=== PATIENT | male | born 1980 | race Caucasian/White ===

== ENCOUNTER → 2020-07-19 12:38 | Outpatient (BNVA) | payer MEDICARE, SELFPAY | PROVIDERS: Family Provider Family Medicine; PCP Family Medicine; Visit Provider Psychiatry & Neurology Psychiatry | DX: F39 Unspecified mood [affective] disorder (principal) | CPT/HCPCS: 90792 ==

== ENCOUNTER → 2020-09-18 15:25 | Outpatient (BNVA) | payer MEDICARE, SELFPAY | PROVIDERS: Family Provider Family Medicine; PCP Family Medicine; Visit Provider Psychiatry & Neurology Psychiatry | DX: F39 Unspecified mood [affective] disorder (principal) | CPT/HCPCS: 99213 ==

== ENCOUNTER → 2020-10-17 08:51 | Outpatient (BNVA) | payer MEDICARE, MEDICAID, SELFPAY | PROVIDERS: Family Provider Family Medicine; PCP Family Medicine; Visit Provider Social Worker | DX: F39 Unspecified mood [affective] disorder (principal) | CPT/HCPCS: 90834 ==

== ENCOUNTER → 2020-10-30 14:37 | Outpatient (BNVA) | payer MEDICARE, SELFPAY | PROVIDERS: Family Provider Family Medicine; PCP Family Medicine; Visit Provider Psychiatry & Neurology Psychiatry | DX: F39 Unspecified mood [affective] disorder (principal); Z03.89 Encounter for observation for other suspected diseases and conditions ruled out; Z79.899 Other long term (current) drug therapy | CPT/HCPCS: 80053; 80061; 83036; 84443; 85025; 99214 ==

== ENCOUNTER → 2020-11-07 08:32 | Outpatient (BNVA) | payer MEDICARE, MEDICAID, SELFPAY | PROVIDERS: Family Provider Family Medicine; PCP Family Medicine; Visit Provider Social Worker | DX: F39 Unspecified mood [affective] disorder (principal) | CPT/HCPCS: 90834 ==

== ENCOUNTER → 2020-11-21 14:46 | Outpatient (BNVA) | payer MEDICARE, MEDICAID, SELFPAY | PROVIDERS: Family Provider Family Medicine; PCP Family Medicine; Visit Provider Social Worker | DX: F39 Unspecified mood [affective] disorder (principal); F43.12 Post-traumatic stress disorder, chronic; F25.0 Schizoaffective disorder, bipolar type | CPT/HCPCS: 90834; 90832 ==

== ENCOUNTER → 2020-12-05 12:48 | Outpatient (BNVA) | payer MEDICARE, MEDICAID, SELFPAY | PROVIDERS: Family Provider Family Medicine; PCP Family Medicine; Visit Provider Social Worker | DX: F39 Unspecified mood [affective] disorder (principal) | CPT/HCPCS: 90834 ==

== ENCOUNTER → 2020-12-19 13:49 | Outpatient (BNVA) | payer MEDICARE, MEDICAID, SELFPAY | PROVIDERS: Family Provider Family Medicine; PCP Family Medicine; Visit Provider Social Worker | DX: F39 Unspecified mood [affective] disorder (principal) | CPT/HCPCS: 90834 ==

== ENCOUNTER → 2020-12-25 14:24 | Outpatient (BNVA) | payer MEDICARE, SELFPAY | PROVIDERS: Family Provider Family Medicine; PCP Family Medicine; Visit Provider Psychiatry & Neurology Psychiatry | DX: F39 Unspecified mood [affective] disorder (principal); Z03.89 Encounter for observation for other suspected diseases and conditions ruled out; Z79.899 Other long term (current) drug therapy | CPT/HCPCS: 99214 ==

== ENCOUNTER → 2021-01-02 12:49 | Outpatient (BNVA) | payer MEDICARE, MEDICAID, SELFPAY | PROVIDERS: Family Provider Family Medicine; PCP Family Medicine; Visit Provider Social Worker | DX: F39 Unspecified mood [affective] disorder (principal) | CPT/HCPCS: 90834 ==

== ENCOUNTER → 2021-01-16 13:49 | Outpatient (BNVA) | payer MEDICARE, MEDICAID, SELFPAY | PROVIDERS: Family Provider Family Medicine; PCP Family Medicine; Visit Provider Social Worker | DX: F39 Unspecified mood [affective] disorder (principal) | CPT/HCPCS: 90834 ==

== ENCOUNTER → 2021-01-28 13:58 | Outpatient (BNVA) | payer MEDICARE, MEDICAID, SELFPAY | PROVIDERS: Family Provider Family Medicine; PCP Family Medicine; Visit Provider Social Worker | DX: F39 Unspecified mood [affective] disorder (principal) | CPT/HCPCS: 90834 ==

== ENCOUNTER → 2021-02-26 13:12 | Outpatient (BNVA) | payer MEDICARE, MEDICAID, SELFPAY | PROVIDERS: Family Provider Family Medicine; PCP Family Medicine; Visit Provider Psychiatry & Neurology Psychiatry | DX: F39 Unspecified mood [affective] disorder (principal); F43.10 Post-traumatic stress disorder, unspecified; Z03.89 Encounter for observation for other suspected diseases and conditions ruled out; Z79.899 Other long term (current) drug therapy | CPT/HCPCS: 99214 ==

== ENCOUNTER → 2021-02-27 13:50 | Outpatient (BNVA) | payer MEDICARE, MEDICAID, SELFPAY | PROVIDERS: Family Provider Family Medicine; PCP Family Medicine; Visit Provider Social Worker | DX: F39 Unspecified mood [affective] disorder (principal) | CPT/HCPCS: 90834 ==

== ENCOUNTER → 2021-03-07 13:00 | Outpatient (BNVA) | payer OTHER, SELFPAY | PROVIDERS: Family Provider Family Medicine; PCP Family Medicine; Visit Provider Psychiatry & Neurology Psychiatry | DX: F43.12 Post-traumatic stress disorder, chronic (principal); Z79.899 Other long term (current) drug therapy | CPT/HCPCS: 80061; 83036 ==

== ENCOUNTER 2021-03-09 06:13 | Emergency (ER) | payer MEDICARE, MEDICAID, SELFPAY ==
[2021-03-09 06:24] VITALS: BP 119/88; PULSE 87; RESP 18; TEMP 36.2; O2SAT 100; BMI 25.1
--- NOTE | 2021-03-09 06:27 | W.ED.EYEPROB ---
HPI - Eye Problem General: Chief complaint: Eye Problems Stated complaint: eye redness/itching X 3 days Time Seen by Provider: 03/09/21 06:20 History of Present Illness: HPI Narrative: 40 yo male presetns to the ER with conjunctival irritation. Last 3 days he has had redness has been using an [id number] Tetrahydrolozine drops. He has noticed that the eyes have become increasingly red he has a lot of itching this morning he had a little bit of crusting but that was the first time he has not had any purulent drainage. chief complaint: eye redness Onset (ago): day(s) (3) Onset description: gradual Duration: constant and progressively worsening Location: both eyes Eye Symptoms: redness and itching Severity: moderate Context: contact lens use Associated symptoms: Denies fever(s), headache(s), nausea, neck pain, rhinorrhea or vomiting Treatments Prior to Arrival: OTC eye drops (Using tetrahydrozoline multiple times daily) and removed contact lens Review of Systems Const: Denies: fever(s) ENMT: Denies: throat pain, ear or mastoid pain, nasal discharge or nasal congestion Card: Denies: chest pain, dyspnea on exertion or orthopnea Resp: Denies: dyspnea or non-productive cough GI: Denies: nausea or vomiting Musc: Denies: neck pain Neuro: Denies: headache(s) PFSH ED PFSH: Medical History Mood disorder with psychosis Psychiatric care PTSD (post-traumatic stress disorder) Social History Smoking and tobacco status: current every day smoker cigarettes Years cigarettes smoked: 28 and e-cigarettes E-Cigarette Details: with nicotine Quit status (tobacco): not considering quitting Second hand smoke exposure: Yes Alcohol intake: current Alcohol intake frequency: holidays/special occasions only Alcohol type: hard liquor Desire information about alcohol rehabilitation?: No Adopted: No (Was in foster care as a child) Caregiver/support person: No Lives independently: Yes Household members: none Housing: Apartment Marital status: Legally Number of children: 2 Highest education level completed: 11th Grade service: No Current occupational status: disabled Current occupational exposures/hazards: No Pets and animals: Yes Pets & animal details: giancarlo galicia History of recent travel: Yes Out of state: Yes Leisure activites: games and fishing Sexually active: No Current gender identity: Male Katlin/Sikhism: None Special katlin needs: No Agree to transfusion: Yes Financial difficulty paying for basics: Somewhat Hard Physical Exam Const: COMMON NORMALS: no acute distress GENERAL APPEARANCE: cooperative and comfortable ORIENTATION/CONSCIOUSNESS: Yes awake, Yes oriented to person, Yes oriented to place and Yes oriented to time HENMT: COMMON NORMALS: normocephalic, atraumatic, hearing grossly normal bilaterally and external ears normal HEAD & SCALP: normocephalic and atraumatic EXTERNAL EAR: Yes external ears normal Eye: COMMON NORMALS: Equal, round and reactive pupils present, EOMs intact bilaterally and no scleral icterus CONJUNCTIVA: Yes conjunctival abnormal positive bilateral conjunctival injection diffuse PUPIL: Yes Equal, round and reactive pupils present Neck/C-Spine: COMMON NORMALS: no lymphadenopathy Neuro: SENSORIUM/ORIENTATION: Yes oriented to person, Yes oriented to place and Yes oriented to time Skin: COMMON NORMALS: no rashes or lesions noted GENERAL SKIN EXAM: no rashes or lesions noted Course Vital Signs: Vital signs: Vital Signs Temperature 97.2 F L 03/09/21 06:24 Pulse Rate 87 03/09/21 06:24 Respiratory Rate 18 03/09/21 06:24 Blood Pressure 119/88 03/09/21 06:24 Pulse Oximetry 100 03/09/21 06:24 MDM - Eye Problem MDM Narrative: Medical decision making narrative: Patient is experiencing some rebound hyperemia in addition to allergy effect which probably set it off to begin with we will start him on an antihistamine and Patanol eyedrops avoid the use of the tetrahydrozolone. Discharge Plan Discharge Patient Disposition: Home Clinical Impression: Allergic conjunctivitis Condition: Stable Prescriptions: New Pataday Twice Daily Relief 0.1 % drops 1 drp ophthalmic (eye) BID Qty: 5 RF: 0 cetirizine 10 mg tablet 10 mg PO BID Qty: 20 RF: 0 Naphcon-A 0.025-0.3 % drops 1 drp ophthalmic (eye) QID 7 Days Qty: 15 RF: 0 No Action lurasidone 40 mg tablet 40 mg PO .qhs 30 Days Qty: 30 RF: 3 acetaminophen [Tylenol Extra Strength] 500 mg tablet 1,000 mg PO Q6H PRNRF: 0 Discharge Orders: Discharge ED (Routine); Ordered 03/09/21 Ordered By: Thomas Lambert Discharge Diet: Usual diet Discharge Activity: Resume usual activity Patient Instructions: Opioid Safety Activity Restrictions/Additional Instructions: Keep appointment with the eye doctor that you currently have scheduled. Coding Level of Care Code ED Hedge Fund Principal for Rudy Dwyer
[2021-03-09 06:48] VITALS: BP 140/76; PULSE 80; RESP 18; TEMP 37; O2SAT 96
== END 2021-03-09 06:51 | disposition home or self-care (01) ==
PROVIDERS: Emergency Provider Family Medicine
DX: H10.10 Acute atopic conjunctivitis, unspecified eye (principal); F17.290 Nicotine dependence, other tobacco product, uncomplicated
CPT/HCPCS: 99282

== ENCOUNTER → 2021-03-13 14:05 | Outpatient (BNVA) | payer MEDICARE, MEDICAID, SELFPAY | PROVIDERS: Family Provider Family Medicine; PCP Family Medicine; Visit Provider Social Worker | DX: F39 Unspecified mood [affective] disorder (principal); F43.10 Post-traumatic stress disorder, unspecified | CPT/HCPCS: 90834 ==

== ENCOUNTER → 2021-03-27 14:00 | Outpatient (BNVA) | payer MEDICARE, MEDICAID, SELFPAY ==
[2021-03-19 14:40] VITALS: BP 124/84; BMI 25.7
== END ==
PROVIDERS: Family Provider Family Medicine; PCP Family Medicine; Visit Provider Social Worker
DX: F39 Unspecified mood [affective] disorder (principal); F43.10 Post-traumatic stress disorder, unspecified
CPT/HCPCS: 90834

== ENCOUNTER → 2021-04-09 13:09 | Outpatient (BNVA) | payer MEDICARE, MEDICAID, SELFPAY ==
[2021-03-19 14:40] VITALS: BP 124/84; BMI 25.7
== END ==
PROVIDERS: Family Provider Family Medicine; PCP Family Medicine; Visit Provider Psychiatry & Neurology Psychiatry
DX: F39 Unspecified mood [affective] disorder (principal); F43.10 Post-traumatic stress disorder, unspecified; Z03.89 Encounter for observation for other suspected diseases and conditions ruled out; Z79.899 Other long term (current) drug therapy
CPT/HCPCS: 99214

== ENCOUNTER → 2021-04-10 13:56 | Outpatient (BNVA) | payer MEDICARE, MEDICAID, SELFPAY ==
[2021-03-19 14:40] VITALS: BP 124/84; BMI 25.7
== END ==
PROVIDERS: Family Provider Family Medicine; PCP Family Medicine; Visit Provider Social Worker
DX: F43.11 Post-traumatic stress disorder, acute (principal); F39 Unspecified mood [affective] disorder
CPT/HCPCS: 90834

== ENCOUNTER → 2021-04-11 09:24 | Outpatient (BNVA) | payer MEDICARE, MEDICAID, SELFPAY ==
[2021-03-19 14:40] VITALS: BP 124/84; BMI 25.7
== END ==
PROVIDERS: Family Provider Family Medicine; PCP Family Medicine; Visit Provider Family Medicine
DX: D47.3 Essential (hemorrhagic) thrombocythemia (principal); D72.829 Elevated white blood cell count, unspecified; M54.16 Radiculopathy, lumbar region; M25.561 Pain in right knee; G89.29 Other chronic pain; F43.10 Post-traumatic stress disorder, unspecified; G56.21 Lesion of ulnar nerve, right upper limb; F39 Unspecified mood [affective] disorder; F17.213 Nicotine dependence, cigarettes, with withdrawal
CPT/HCPCS: 85025

== ENCOUNTER 2021-04-18 11:07 | Outpatient (CLI) | payer MEDICARE, MEDICAID, SELFPAY ==
[2021-03-19 14:40] VITALS: BP 124/84; BMI 25.7
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
== END 2021-04-18 11:08 | disposition home or self-care (01) ==
PROVIDERS: PCP Family Medicine; Visit Provider Family Medicine
DX: M25.561 Pain in right knee (principal); G89.29 Other chronic pain; M54.16 Radiculopathy, lumbar region; V89.2XXA Person injured in unspecified motor-vehicle accident, traffic, initial encounter; R60.0 Localized edema; M25.461 Effusion, right knee; M47.817 Spondylosis without myelopathy or radiculopathy, lumbosacral region
CPT/HCPCS: 72100; 73560

== ENCOUNTER → 2021-04-24 13:46 | Outpatient (BNVA) | payer MEDICARE, MEDICAID, SELFPAY ==
[2021-03-19 14:40] VITALS: BP 124/84; BMI 25.7
== END ==
PROVIDERS: Family Provider Family Medicine; PCP Family Medicine; Visit Provider Social Worker
DX: F39 Unspecified mood [affective] disorder (principal)
CPT/HCPCS: 90834; 80500; 85025

== ENCOUNTER → 2021-05-08 13:49 | Outpatient (BNVA) | payer MEDICARE, MEDICAID, SELFPAY ==
[2021-03-19 14:40] VITALS: BP 124/84; BMI 25.7
== END ==
PROVIDERS: Family Provider Family Medicine; PCP Family Medicine; Visit Provider Social Worker
DX: F39 Unspecified mood [affective] disorder (principal)
CPT/HCPCS: 90834

== ENCOUNTER → 2021-05-22 13:47 | Outpatient (BNVA) | payer MEDICARE, MEDICAID, SELFPAY ==
[2021-03-19 14:40] VITALS: BP 124/84; BMI 25.7
== END ==
PROVIDERS: Family Provider Family Medicine; PCP Family Medicine; Visit Provider Social Worker
DX: F39 Unspecified mood [affective] disorder (principal)
CPT/HCPCS: 90834

== ENCOUNTER → 2021-06-06 15:17 | Outpatient (BNVA) | payer MEDICARE, MEDICAID, SELFPAY ==
[2021-03-19 14:40] VITALS: BP 124/84; BMI 25.7
== END ==
PROVIDERS: PCP Family Medicine; Visit Provider Psychiatry & Neurology Psychiatry
DX: F43.10 Post-traumatic stress disorder, unspecified (principal); F39 Unspecified mood [affective] disorder; Z03.89 Encounter for observation for other suspected diseases and conditions ruled out; Z79.899 Other long term (current) drug therapy
CPT/HCPCS: 99214

== ENCOUNTER 2021-06-12 12:55 | Outpatient (CLI) | payer MEDICARE, MEDICAID, SELFPAY ==
[2021-03-19 14:40] VITALS: BP 124/84; BMI 25.7
--- NOTE | 2021-06-12 12:59 | MR_ITS ---
WS: [id number] MRI LUMBAR SPINE NONCONTRAST HISTORY: Chronic lumbar pain with radiculopath, L4-5 retrolisthesis. COMPARISON: 04/18/2021 radiographs TECHNIQUE: Sagittal and axial multisequence imaging is submitted. Schmorl's nodes are noted at T11-12. There is edema surrounding the Schmorl's nodes therefore this ma y be acute. Posterior alignment is normal. No fractures or marrow edema. Disc spaces and vertebral body heights a re well-maintained. Disc spaces and vertebral body heights are well-preserved. Conus terminates normally at L1-2 disc level. L1-L2: Normal. L2-L3: Normal. L3-L4: Very minimal ligamentum flavum hypertrophy. No stenosis. L4-L5: Mild ligamentum flavum hypertrophy and facet arthritis with a small amount of fluid in the fac et joints. Minimal encroachment into the foramen but no significant stenosis. L5-S1: No stenosis or disc protrusions. MR/MR lumbar spine wo con* [id number] IMPRESSION: 1. No significant central or foraminal stenosis. 2. Very mild narrowing of the foramen at L4-5 with mild bilateral facet joint arthritis. 3. Acute appearing Schmorl's nodes at T11-12.
== END 2021-06-12 12:56 | disposition home or self-care (01) ==
LOC: RADSHAW 12:57
PROVIDERS: PCP Family Medicine; Visit Provider Family Medicine
DX: M54.16 Radiculopathy, lumbar region (principal); M51.44 Schmorl's nodes, thoracic region; M47.816 Spondylosis without myelopathy or radiculopathy, lumbar region
CPT/HCPCS: 72148

== ENCOUNTER → 2021-06-14 14:50 | Outpatient (BNVA) | payer MEDICARE, MEDICAID, SELFPAY ==
[2021-03-19 14:40] VITALS: BP 124/84; BMI 25.7
== END ==
PROVIDERS: PCP Family Medicine; Visit Provider Social Worker
DX: F39 Unspecified mood [affective] disorder (principal)
CPT/HCPCS: 90834

== ENCOUNTER → 2021-07-10 14:18 | Outpatient (BNVA) | payer MEDICARE, MEDICAID, SELFPAY ==
[2021-03-19 14:40] VITALS: BP 124/84; BMI 25.7
== END ==
PROVIDERS: PCP Family Medicine; Visit Provider Social Worker
DX: F39 Unspecified mood [affective] disorder (principal)
CPT/HCPCS: 90834

== ENCOUNTER 2021-07-16 06:00 | Outpatient (RCR) | payer MEDICARE, MEDICAID, SELFPAY ==
[2021-03-19 14:40] VITALS: BP 124/84; BMI 25.7
== END 2021-08-13 23:59 | disposition home or self-care (01) ==
LOC: SPT 06:00
PROVIDERS: PCP Family Medicine; Referring Provider Family Medicine; Visit Provider Family Medicine
DX: G56.21 Lesion of ulnar nerve, right upper limb (principal); M54.31 Sciatica, right side
CPT/HCPCS: 97110; 97162

== ENCOUNTER → 2021-07-24 14:25 | Outpatient (BNVA) | payer MEDICARE, MEDICAID, SELFPAY ==
[2021-03-19 14:40] VITALS: BP 124/84; BMI 25.7
== END ==
PROVIDERS: PCP Family Medicine; Visit Provider Social Worker
DX: F39 Unspecified mood [affective] disorder (principal)
CPT/HCPCS: 90834

== ENCOUNTER → 2021-08-14 14:24 | Outpatient (BNVA) | payer MEDICARE, MEDICAID, SELFPAY ==
[2021-03-19 14:40] VITALS: BP 124/84; BMI 25.7
== END ==
PROVIDERS: PCP Family Medicine; Visit Provider Social Worker
DX: F39 Unspecified mood [affective] disorder (principal)
CPT/HCPCS: 90834

== ENCOUNTER → 2021-08-28 14:11 | Outpatient (BNVA) | payer MEDICARE, MEDICAID, SELFPAY ==
[2021-03-19 14:40] VITALS: BP 124/84; BMI 25.7
== END ==
PROVIDERS: PCP Family Medicine; Visit Provider Social Worker
DX: F39 Unspecified mood [affective] disorder (principal)
CPT/HCPCS: 90834

== ENCOUNTER → 2021-09-18 14:19 | Outpatient (BNVA) | payer MEDICARE, MEDICAID, SELFPAY ==
[2021-03-19 14:40] VITALS: BP 124/84; BMI 25.7
== END ==
PROVIDERS: PCP Family Medicine; Visit Provider Social Worker
DX: F39 Unspecified mood [affective] disorder (principal)
CPT/HCPCS: 90837; 90834

== ENCOUNTER → 2021-09-19 14:36 | Outpatient (BNVA) | payer MEDICARE, MEDICAID, SELFPAY ==
[2021-03-19 14:40] VITALS: BP 124/84; BMI 25.7
== END ==
PROVIDERS: PCP Family Medicine; Visit Provider Psychiatry & Neurology Psychiatry
DX: F39 Unspecified mood [affective] disorder (principal); Z03.89 Encounter for observation for other suspected diseases and conditions ruled out; Z79.899 Other long term (current) drug therapy
CPT/HCPCS: 99214

== ENCOUNTER → 2021-10-02 14:14 | Outpatient (BNVA) | payer MEDICARE, MEDICAID, SELFPAY ==
[2021-03-19 14:40] VITALS: BP 124/84; BMI 25.7
== END ==
PROVIDERS: PCP Family Medicine; Visit Provider Social Worker
DX: F39 Unspecified mood [affective] disorder (principal)
CPT/HCPCS: 90837; 90834

== ENCOUNTER → 2021-10-23 14:20 | Outpatient (BNVA) | payer MEDICARE, MEDICAID, SELFPAY ==
[2021-03-19 14:40] VITALS: BP 124/84; BMI 25.7
== END ==
PROVIDERS: PCP Family Medicine; Visit Provider Social Worker
DX: F43.12 Post-traumatic stress disorder, chronic (principal); F39 Unspecified mood [affective] disorder
CPT/HCPCS: 90837; 90834

== ENCOUNTER → 2021-11-20 14:18 | Outpatient (BNVA) | payer MEDICARE, MEDICAID, SELFPAY ==
[2021-03-19 14:40] VITALS: BP 124/84; BMI 25.7
== END ==
PROVIDERS: PCP Family Medicine; Visit Provider Social Worker
DX: F39 Unspecified mood [affective] disorder (principal)
CPT/HCPCS: 90837; 90834

== ENCOUNTER → 2021-12-04 14:21 | Outpatient (BNVA) | payer MEDICARE, MEDICAID, SELFPAY ==
[2021-03-19 14:40] VITALS: BP 124/84; BMI 25.7
== END ==
PROVIDERS: PCP Family Medicine; Visit Provider Social Worker
DX: F39 Unspecified mood [affective] disorder (principal); F43.10 Post-traumatic stress disorder, unspecified
CPT/HCPCS: 90837; 90834

== ENCOUNTER → 2021-12-18 14:18 | Outpatient (BNVA) | payer MEDICARE, MEDICAID, SELFPAY ==
[2021-03-19 14:40] VITALS: BP 124/84; BMI 25.7
== END ==
PROVIDERS: PCP Family Medicine; Visit Provider Social Worker
DX: F39 Unspecified mood [affective] disorder (principal)
CPT/HCPCS: 90837; 90834

== ENCOUNTER → 2022-01-01 14:30 | Outpatient (BNVA) | payer MEDICARE, MEDICAID, SELFPAY ==
[2021-03-19 14:40] VITALS: BP 124/84; BMI 25.7
== END ==
PROVIDERS: PCP Family Medicine; Visit Provider Social Worker
DX: F39 Unspecified mood [affective] disorder (principal)
CPT/HCPCS: 90834

== ENCOUNTER → 2022-01-09 14:53 | Outpatient (BNVA) | payer MEDICARE, MEDICAID, SELFPAY ==
[2021-03-19 14:40] VITALS: BP 124/84; BMI 25.7
== END ==
PROVIDERS: PCP Family Medicine; Visit Provider Psychiatry & Neurology Psychiatry
DX: F39 Unspecified mood [affective] disorder (principal); Z03.89 Encounter for observation for other suspected diseases and conditions ruled out; Z79.899 Other long term (current) drug therapy; F40.240 Claustrophobia
CPT/HCPCS: 99214

== ENCOUNTER → 2022-01-15 13:35 | Outpatient (BNVA) | payer MEDICARE, MEDICAID, SELFPAY ==
[2021-03-19 14:40] VITALS: BP 124/84; BMI 25.7
== END ==
PROVIDERS: PCP Family Medicine; Visit Provider Social Worker
DX: F39 Unspecified mood [affective] disorder (principal); F43.12 Post-traumatic stress disorder, chronic
CPT/HCPCS: 90834

== ENCOUNTER → 2022-01-29 14:22 | Outpatient (BNVA) | payer MEDICARE, MEDICAID, OTHER, SELFPAY ==
[2021-03-19 14:40] VITALS: BP 124/84; BMI 25.7
== END ==
PROVIDERS: PCP Family Medicine; Visit Provider Social Worker
DX: F39 Unspecified mood [affective] disorder (principal)
CPT/HCPCS: 90837; 90834

== ENCOUNTER → 2022-02-19 14:17 | Outpatient (BNVA) | payer MEDICARE, MEDICAID, SELFPAY ==
[2021-03-19 14:40] VITALS: BP 124/84; BMI 25.7
== END ==
PROVIDERS: PCP Family Medicine; Visit Provider Social Worker
DX: F39 Unspecified mood [affective] disorder (principal); F40.240 Claustrophobia
CPT/HCPCS: 90837; 90834

== ENCOUNTER → 2022-03-05 14:24 | Outpatient (BNVA) | payer MEDICARE, MEDICAID, SELFPAY ==
[2021-03-19 14:40] VITALS: BP 124/84; BMI 25.7
== END ==
PROVIDERS: PCP Family Medicine; Visit Provider Social Worker
DX: F39 Unspecified mood [affective] disorder (principal); F40.240 Claustrophobia
CPT/HCPCS: 90837; 90834

== ENCOUNTER → 2024-12-12 10:55 | Outpatient (BNVA) | payer MEDICARE, SELFPAY ==
[2021-03-19 14:40] VITALS: BP 124/84; BMI 25.7
== END ==
PROVIDERS: PCP Family Medicine; Visit Provider Family Medicine
DX: Z13.6 Encounter for screening for cardiovascular disorders (principal); Z79.899 Other long term (current) drug therapy
CPT/HCPCS: 80053; 80061; 83036; 85025

== ENCOUNTER 2025-04-10 11:43 | Outpatient (CLI) | payer MEDICARE, MEDICAID, SELFPAY ==
[2025-03-08 11:09] VITALS: BP 128/76; BMI 25.1
--- NOTE | 2025-04-10 11:46 | XRR_ITS ---
PROCEDURE INFORMATION: Exam: XR Cervical Spine Exam date and time: 04/10/2025 11:55 AM Age: 44 years old Clinical indication: Right arm numbness xyears, no specific injury, HX of bulging disc in lower back; Additional info: Neuropathy of right upper extremity TECHNIQUE: Imaging protocol: Radiologic exam of the cervical spine. Views: 2 or 3 views. COMPARISON: No relevant prior studies available. FINDINGS: Bones/joints: No spine curvature seen. The normal cervical lordosis is maintained, without listhesis. No fracture identified. Vertebral body heights are well preserved. There are mild degenerative changes, manifested by intervertebral disc space narrowing, endplate osteophytes and facet joint arthrosis, involving mainly C5-C6. Soft tissues: Unremarkable. XR/XR cervical spine 3V* [id number] IMPRESSION: 1. No acute findings. 2. Mild degenerative changes of the cervical spine.
== END 2025-04-10 11:44 | disposition home or self-care (01) ==
LOC: RAD 11:44
PROVIDERS: PCP Family Medicine; Visit Provider Family Medicine
DX: M47.812 Spondylosis without myelopathy or radiculopathy, cervical region (principal); G62.9 Polyneuropathy, unspecified
CPT/HCPCS: 72040

== ENCOUNTER 2025-04-19 09:19 | Outpatient (RCR) | payer MEDICARE, SELFPAY ==
[2025-03-08 11:09] VITALS: BP 128/76; BMI 25.1
== END 2025-05-14 23:59 | disposition home or self-care (01) ==
LOC: SPT 09:19
PROVIDERS: PCP Family Medicine; Visit Provider Family Medicine
DX: M54.2 Cervicalgia (principal)
CPT/HCPCS: 97110; 97161

== ENCOUNTER 2025-05-15 05:00 | Outpatient (RCR) | payer MEDICARE, MEDICAID, SELFPAY ==
[2025-03-08 11:09] VITALS: BP 128/76; BMI 25.1
== END 2025-06-12 07:50 | disposition home or self-care (01) ==
LOC: SPT 05:00
PROVIDERS: PCP Family Medicine; Visit Provider Family Medicine
DX: M54.2 Cervicalgia (principal)
CPT/HCPCS: 97110